=== PATIENT | female | born 1955 | race Caucasian/White ===

== ENCOUNTER → 2019-07-31 | Outpatient (CLI) | payer MEDICARE ==
--- NOTE | 2019-07-31 15:33 | XR ---
EXAMINATION TYPE: XR wrist complete LT, XR hand complete LT DATE OF EXAM: 07/31/2019 CLINICAL HISTORY: Left wrist and hand pain. No stated injury. TECHNIQUE: Frontal, lateral and oblique images of the left hand and wrist are obtained. COMPARISON: None FINDINGS: There is no acute fracture/dislocation evident in the left hand nor wrist. The joint spac es in the left wrist and hand appear aligned. There is mild joint space narrowing and osseous prolif eration at the first carpometacarpal joint. Carpal carpal interspaces are maintained. Osteophyte is s een at the proximal interphalangeal joint of the second digit and mild joint space narrowing of the d istal interphalangeal joints. The overlying soft tissue appears unremarkable. IMPRESSION: There is no acute fracture or dislocation in the left hand nor wrist. Mild arthropathy i n a distribution most typical of osteoarthritis.
== END | disposition home or self-care (01) ==
LOC: RADXRMAIN 14:22
PROVIDERS: ATTEND Family Medicine
DX: M19.032 Primary osteoarthritis, left wrist (principal); M19.042 Primary osteoarthritis, left hand

== ENCOUNTER → 2020-03-23 | Outpatient (CLI) | payer MEDICARE, OTHER | END | disposition home or self-care (01) | LOC: LABWHC1 10:38 | PROVIDERS: ATTEND Family Medicine | DX: Z03.818 Encounter for observation for suspected exposure to other biological agents ruled out (principal) | CPT/HCPCS: U0003; C9803 ==

== ENCOUNTER → 2020-04-12 | Outpatient (CLI) | payer MEDICARE, OTHER ==
--- NOTE | 2020-04-12 13:27 | XR ---
EXAMINATION TYPE: XR knee complete 3 views RT, XR foot complete 3 views LT DATE OF EXAM: 04/12/2020 COMPARISON: NONE HISTORY: 65-year-old female pain after fall. M25.561, M79.672 FINDINGS: Right knee: Tricompartmental degenerative spurring. At least mild loss of cartilage and joint space within the me dial compartment. There may be a trace knee joint effusion. No acute fracture, subluxation, or disloc ation seen. Left foot: Type II accessory navicular. Tiny os peroneum. Severe degenerative change first MTP joint. Mild bunio n formation. Small plantar heel spur. No acute fracture, subluxation, dislocation seen. IMPRESSION: 1. Right knee: Tricompartmental osteoarthrosis, probably moderate in the medial and patellofemoral co mpartments. Trace knee joint effusion. No acute osseous abnormality seen. 2. 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 No acute osseous abnormality seen. A type II acce ssory navicular incidentally noted, which may become symptomatic in some patients.
== END | disposition home or self-care (01) ==
LOC: RADXRMAIN 10:05
PROVIDERS: ATTEND Family Medicine
DX: M17.11 Unilateral primary osteoarthritis, right knee (principal); M19.072 Primary osteoarthritis, left ankle and foot; M21.612 Bunion of left foot

== ENCOUNTER → 2024-08-11 | Outpatient (CLI) | payer MEDICARE, OTHER ==
--- NOTE | 2024-08-11 09:54 | XR ---
EXAMINATION TYPE: XR shoulder complete RT, XR humerus RT, XR clavicle RT DATE OF EXAM: 08/11/2024 9:42 AM COMPARISON: None. CLINICAL INDICATION: Female, 69 years old with history of M79.6.21 PAIN IN RIGHT UPPER ARM, pain TECHNIQUE: Two views of the right humerus and clavicle are obtained. 3 views right shoulder. FINDINGS: There is no acute fracture or dislocation seen in the right humerus. No acute displaced f racture in the right shoulder or clavicle. Mild to moderate narrowing and spurring at the acromioclav icular joint. Overlying soft tissue is unremarkable. IMPRESSION: As above. [facility], , 08/11/2024 9:52 AM
== END | disposition home or self-care (01) ==
LOC: RADXRMAIN 08:53
PROVIDERS: ATTEND Family Medicine
DX: M79.621 Pain in right upper arm (principal); M25.511 Pain in right shoulder